=== PATIENT | male | born 1975 | race Caucasian/White ===

== ENCOUNTER 2019-10-07 10:27 | Outpatient (CLI) | payer BC, SELFPAY ==
[2019-10-11 10:18] LABS: PSA, Screening 0.4 ng/mL (0.0-2.5)
== END 2019-10-07 10:47 ==
PROVIDERS: PCP Internal Medicine; Visit Provider Naturopath
DX: R35.0 Frequency of micturition (principal); Z12.5 Encounter for screening for malignant neoplasm of prostate
CPT/HCPCS: 36415; 84153; 84154

== ENCOUNTER 2020-07-20 11:22 | Emergency (ER) | payer BC, SELFPAY ==
[2020-07-20 11:26] VITALS: BP 136/86; PULSE 78; RESP 14; TEMP 37.2; O2SAT 97
--- NOTE | 2020-07-20 11:38 | ED.GENADUL_ITS ---
Discharge Plan Disposition Patient Disposition: HOME Condition: Stable Discharge Details Clinical Impression: Lumbago with sciatica, right side Primary Care Provider: Reese Robert ED Provider: Sangita Gannon Home Meds and New Rx's Prescriptions: Continued methylprednisolone [Medrol (Tevin)] 4 mg tablets,dose pack See Rx Instructions PO PER PKG DIR Qty: 21 RF: 0 Discharge Instructions Instructions: Sciatica (ED), Lower Back Exercises (ED) Additional Instructions: You should hear from radiology regarding MRI within the next week. Follow up with primary care provider in 3-5 days. Return to ED sooner if any worsening or concerns. Increase oral fluids. Please take Tylenol or Ibuprofen with food every 4-6 hours as needed for pain and swelling. Continue with physical th erapy. Return for any loss of bowel or bladder control, numbness or tingling in your groin area or inability to walk. Referrals: Reese Robert [Primary Care Provider] - Discharge Data Discharge Date/Time-TO BE ENTERED AT DEPARTURE: 07/20/20 13:25 Medical Decision Making 1144: Spoke with home service technician Ralph who reports that they would be able to get him in as an outpatient MRI later this week if they get the orders sent today. At this time capability to get MRI today is not available. At this time I feel that that is appropriate there is no emergent need for an MRI today. Patient has no loss of bowel or bladder control no saddle anesthesia or any emergent symptoms to indicate need for MRI today. I will discuss this with the patient. X-ray of the L-spine ordered and urinalysis. EXAM: XR LUMBAR SPINE COMPLETE CLINICAL HISTORY: Lumbar tenderness with Right side sciatica. TECHNIQUE: 2D digital imaging was performed. COMPARISON: No exams were available for comparison FINDINGS: BONES: No fracture or destructive lesion. Vertebral bodies are unremarkable. No facet hypertrophy identified. DISKS: Intervertebral disc spaces are maintained. ALIGNMENT: Lumbar spinal alignment is within normal limits. SOFT TISSUE: Normal. IMPRESSION: Unremarkable radiographs of the lumbar spine. Discussed lumbar x-rays with patient, verbalized understanding. Discussed strict return instructions. This text was generated using [employer] system, please disregard any oddities of phrase or misspellings. HPI General Mode of arrival: ambulatory . Date/Time Provider Initiated Documentation: 07/20/20 11:23 . Limitations to Documentation: no limitations . Information obtained by: patient . HPI Narrative: 24-year-old male presents to the ER with chief complaint of right calf numbness. He was seen at [facility] yesterday with lower back pain with radiation into his right hip and extremity, he states that he is in physical therapy and has been taking methylprednisolone which has helped his pain. He states that yesterday began with numbness to his right calf down into his right foot. He has an outpatient MRI ordered for a thoracic and lumbar spine without contrast and he was hoping that he could get that done today. He denies any loss of bowel or bladder control, no saddle anesthesia no urinary hesitancy or constipation. Related Data Home Medications Medication Instructions Recorded Confirmed methylprednisolone 4 mg tablets in See Rx Instructions PO PER PKG DIR 07/19/20 07/20/20 a dose pack #21 dose pk Previous Rx's Medication Instructions Recorded methylprednisolone 4 mg tablets in See Rx Instructions PO PER PKG DIR 07/19/20 a dose pack #21 dose pk Allergies Allergy/AdvReac Type Severity Reaction Status Date / Time No Known Allergies Allergy Unverified 07/20/20 17:17 General Stated Complaint: Nk/Back Pain JUDY: 3 Review of Systems Narrative: Constitutional: Negative for weight loss, alert and oriented, well groomed, normal body habitus, appears comfortable. HEENT: Denies trauma, headaches, blurry vision, nasal discharge, sore throat, trouble swallowing. Chest: Denies chest pain, palpitations, irregular rhythm, hypertension. Respiratory: Denies Shortness of breath, cough, hemoptysis. GI: Denies abdominal pain, nausea, vomiting, diarrhea, constipation. : Denies dysuria, hematuria, flank pain, rectal bleeding. Neuro: Denies dizziness, blurry vision, weakness, syncope, headache or facial numbness. Hematologic: Denies easy bruising, intolerance to heat or cold, hair loss. [facility] Social History Smoking/Tobacco Use Status: Never Smoking risk assessment performed?: Yes Alcohol Intake: never Drug use: Never Do you feel safe at home: Yes Do you feel safe in your relationship?: Yes Exam Narrative Exam Narrative: Constitutional: Alert and oriented x3. Appears stated age. Normal body habitus. Head: Normocephalic, no trauma. Eyes: Pupils PERRLA, Red reflex noted, EOM's intact. Eyelids symmetrical without lesions, discharge, or swelling. ENT: Bilateral TM's WNL, External ear normal to inspection, no mastoid TTP, swelling, or erythema, Nasal turbinates WNL, no nasal discharge. Normal dentition, Posterior pharynx WNL, no exudate. Chest: RRR, Normal S1, S2, distal pulses intact. Resp: Lungs clear to auscultation bilaterally, no wheezes, rales, or rhonchi. Musculoskeletal: Normal gait, 5/5 strength to all four extremities. Skin: No suspicious rashes or lesions. Capillary refill less than 2 sec. Neurologic: Cranial nerves II-XII intact. Alert and oriented x 3. DTR's intact. Hematologic/Lymphatic: No ecchymosis, no lymphadenopathy. Course Vital Signs Vital signs: Vital Signs Temperature 37.2 C 07/20/20 11:26 Pulse 78 07/20/20 11:26 Respiratory Rate 14 07/20/20 11:26 Blood Pressure 136/86 07/20/20 11:26 Pulse Oximetry 97 07/20/20 11:26 Temperature 37.2 C 07/20/20 11:26 Temperature Source Skin 07/20/20 11:26 Pulse 78 07/20/20 11:26 Respiratory Rate 14 07/20/20 11:26 Blood Pressure 136/86 07/20/20 11:26 Blood Pressure Position Sitting 07/20/20 11:26 Pulse Oximetry 97 07/20/20 11:26 Oxygen Delivery Method Room Air 07/20/20 11:26 Oxygen Flow Rate 0 07/20/20 11:26 Pain Level 5 07/20/20 11:26
[2020-07-20 12:18] LABS: Bilirubin Negative (Negative); Blood Negative (Negative); Clarity Clear (Clear); Glucose Negative (Negative); Ketones Trace mg/dL (Negative); Leukocyte Esterase Negative (Negative); Nitrite Negative (Negative); Specific Gravity >= 1.030 (1.005-1.025); Urobilinogen 0.2 EU/dL (Up TO 0.2)
[2020-07-20 12:26] LABS: Bacteria Negative HPF (Negative); C & S Indicated? No; Casts Negative LPF (Negative); Crystals Negative HPF (Negative); Epithelial Cells Rare HPF (Negative); Mucus Heavy (Negative); RBC Negative HPF (0-2); WBC 0-2 HPF (0-5)
--- NOTE | 2020-07-20 12:26 | DI.RAD_ITS ---
EXAM: XR LUMBAR SPINE COMPLETE CLINICAL HISTORY: Lumbar tenderness with Right side sciatica. TECHNIQUE: 2D digital imaging was performed. COMPARISON: No exams were available for comparison FINDINGS: BONES: No fracture or destructive lesion. Vertebral bodies are unremarkable. No facet hypertrophy desiree ntified. DISKS: Intervertebral disc spaces are maintained. ALIGNMENT: Lumbar spinal alignment is within normal limits. SOFT TISSUE: Normal. IMPRESSION: Unremarkable radiographs of the lumbar spine. DATA REPOSITORY: RADIATION DOSE DELIVERED:
== END 2020-07-20 13:25 | disposition home or self-care (01) ==
PROVIDERS: Emergency Provider Registered Nurse Emergency; PCP Naturopath
DX: M54.41 Lumbago with sciatica, right side (principal); R20.0 Anesthesia of skin
CPT/HCPCS: 99283; 72110; 81003; 81015

== ENCOUNTER 2020-08-01 00:22 | Outpatient (CLI) | payer BC, SELFPAY ==
--- NOTE | 2020-08-01 | DI.MRI_ITS ---
EXAM: MR LUMBAR SPINE WO CLINICAL HISTORY: LUMBAGO,M54.5,PARESTHESIA,R20.2,SCIATICA,M54.30. TECHNIQUE: Multiplanar multisequence MRI was performed. COMPARISON: No exams were available for comparison FINDINGS: MR examination of the lumbosacral spine was performed according to the usual protocol. No significan t bony signal abnormality seen. Incidental note is made of apparent large bilateral renal cysts. Th beatrice are incompletely visualized. There is a large central and right-sided disc herniation at L4-5 with possible extruded disc fragment projecting below the disc level in the spinal canal on the right. There is deformity of adjacent ne rve roots. No other disc herniation identified in lumbar region. No evidence of a bony central canal spinal emily nosis or neural foraminal stenosis. IMPRESSION: Large right central/paracentral disc herniation at L4-5 with displacement of multiple right-sided ne rve roots at this level. No other significant findings. DATA REPOSITORY:
== END 2020-08-01 00:42 ==
PROVIDERS: PCP Naturopath; Visit Provider Naturopath
DX: M51.16 Intervertebral disc disorders with radiculopathy, lumbar region (principal); R20.2 Paresthesia of skin
CPT/HCPCS: 72148

== ENCOUNTER 2021-02-20 03:05 | Outpatient (CLI) | payer BC, SELFPAY ==
[2021-02-20 12:49] LABS: HCT 44.4 % (40.0-50.0); HGB 15.6 g/dL (13.5-17.5); MCH 30.5 pg (27.0-33.0); MCHC 35.1 % (32.0-36.0); MCV 86.7 fL (80-95); Platelet Count 220 10^3/uL (130-400); RBC 5.12 10^6/uL (4.36-5.78); RDW-SD 37.7 fL; WBC 5.45 10^3/uL (4.4-10.8)
[2021-02-20 13:01] LABS: Hemoglobin A1C 5.3 % (<5.7)
[2021-02-20 13:16] LABS: ALT 44 U/L (16-63); AST 22 U/L (15-37); Albumin 4.3 g/dL (3.4-5.0); Alkaline Phosphatase 86 U/L (46-116); Anion Gap 6.7 mmol/L (3-11); BUN 19 mg/dL (7-18); CO2 32.3 mmol/L (21.0-32.0); CREATININE 1.3 mg/dL (0.70-1.30); Calcium 9.5 mg/dL (8.5-10.1); Calculated LDL 110 mg/dL (<100); Chloride 103 mmol/L (98-107); Cholesterol 187 mg/dL (<200); Glucose 100 mg/dL (74-106); HDL Cholesterol 60 mg/dL (40-60); Potassium 4.3 mmol/L (3.5-5.1); Sodium 142 mmol/L (136-145); TSH (W/Ref FT4) 2.27 uIU/mL (0.36-3.74); Total Protein 7.3 g/dL (6.4-8.2); Triglyceride 89 mg/dL (<150)
== END 2021-02-20 03:06 | disposition home or self-care (01) ==
LOC: LOS 03:05
PROVIDERS: PCP Nurse Practitioner Family; Visit Provider Nurse Practitioner Family
DX: I10 Essential (primary) hypertension (principal); Z13.1 Encounter for screening for diabetes mellitus; Z13.220 Encounter for screening for lipoid disorders; Z13.29 Encounter for screening for other suspected endocrine disorder
CPT/HCPCS: 36415; 80053; 80061; 85027; 83036; 84443

== ENCOUNTER 2021-08-06 20:42 | Outpatient (REF) | payer BC, SELFPAY ==
[2021-08-08 15:09] LABS: COVID-19 RT-PCR UVMMC Result Negative (Negative)
== END 2021-08-06 20:43 | disposition home or self-care (01) ==
LOC: LBN 20:42
PROVIDERS: PCP Nurse Practitioner Family; Visit Provider Family Medicine
DX: Z20.822 Contact with and (suspected) exposure to COVID-19 (principal); R05.8 Other specified cough
CPT/HCPCS: U0003

== ENCOUNTER 2024-02-25 00:52 | Outpatient (CLI) | payer OTHER, SELFPAY ==
[2024-02-25 12:21] LABS: HCT 43.1 % (40.0-50.0); HGB 15.3 g/dL (13.5-17.5); MCH 30.7 pg (27.0-33.0); MCHC 35.5 % (32.0-36.0); MCV 86 fL (80-95); MPV 10.8 fL (8.0-11.0); Platelet Count 222 10^3/uL (130-400); RBC 4.99 10^6/uL (4.36-5.78); WBC 4.76 10^3/uL (4.4-10.8)
[2024-02-25 12:44] LABS: Anion Gap 6.3 mmol/L (3-11); BUN 20 mg/dL (7-18); CO2 29.7 mmol/L (21.0-32.0); CREATININE 1.3 mg/dL (0.70-1.30); Calcium 9.4 mg/dL (8.5-10.1); Calculated LDL 112 mg/dL (<100); Chloride 102 mmol/L (98-107); Cholesterol 187 mg/dL (<200); Estimated GFR 67.76 (mL/min/1.73m2); Glucose 89 mg/dL (74-106); HDL Cholesterol 59 mg/dL (40-60); Potassium 3.7 mmol/L (3.5-5.1); Sodium 138 mmol/L (136-145); Triglyceride 83 mg/dL (<150)
== END 2024-02-25 00:53 | disposition home or self-care (01) ==
LOC: LOS 00:52
PROVIDERS: Visit Provider Student in an Organized Health Care Education/Training Program
DX: I10 Essential (primary) hypertension (principal); Z13.220 Encounter for screening for lipoid disorders; Z13.228 Encounter for screening for other metabolic disorders
CPT/HCPCS: 36415; 80048; 80061; 85027

== ENCOUNTER 2024-07-14 15:16 | Outpatient (CLI) | payer OTHER, SELFPAY ==
--- NOTE | 2024-07-14 11:00 | DI.RAD_ITS ---
Exam(s) XR HIP RT COMPLETE AP PELVIS EXAM: XR HIP RT COMPLETE AP PELVIS CLINICAL HISTORY: RIGHT HIP PAIN. TECHNIQUE: 2D digital imaging was performed of the right hip. Images were obtained. AP pelvis and lateral right hip views were obtained. COMPARISON: No exams were available for comparison FINDINGS: BONES: No acute fracture is present. No bony destructive lesion is seen. JOINTS: No dislocation present. There is mild prominence of the acetabular roof suggesting femoral ac etabular impingement. The left hip appears well maintained. SOFT TISSUE: Surgical clips are seen inferior to the pelvis suggesting prior vasectomy. IMPRESSION: Prominence of the right acetabular roof suggesting femoral acetabular impingement. Unremarkable radi ographs of the pelvis. DATA REPOSITORY: RADIATION DOSE DELIVERED:
== END 2024-07-14 15:17 | disposition home or self-care (01) ==
LOC: DIORS 15:17
PROVIDERS: PCP Student in an Organized Health Care Education/Training Program; Visit Provider Student in an Organized Health Care Education/Training Program
DX: M25.551 Pain in right hip (principal)
CPT/HCPCS: 73502

== ENCOUNTER 2024-08-24 02:55 | Outpatient (CLI) | payer OTHER, SELFPAY ==
--- NOTE | 2024-08-24 09:15 | DI.MRI_ITS ---
Exam(s) MR LOWER JOINT RT WO EXAM: MR LOWER JOINT RT WO CLINICAL HISTORY: Right hip pain,femoroacetabular impingement rt hip, m25.851 TECHNIQUE: Multiplanar multisequence MRI of right hip was performed COMPARISON: CR XR HIP RT COMPLETE AP PELVIS from 07/14/2024 FINDINGS: Bones: There is no evidence of a fracture or avascular necrosis. No bone marrow edema is seen. The SI joints and symphysis pubis are well maintained. Joint: There is no evidence of a paralabral cyst. No joint effusion is present. The right labrum ap pears mildly thickened compared to the left. This may be degenerative or reflect a tear. There is p rominence of the right acetabular roof suggestive of femoral acetabular impingement. Musculotendinous structures: The right Musculotendinous structures demonstrate no abnormality. Intra pelvic structures demonstrate no significant abnormality. Note is made of hyperintense signal adjacen t to the left greater trochanter on the T2 weighted images. The left gluteal tendons at the insertio n site onto the greater trochanter are intact. IMPRESSION: 1. Prominence of the right acetabular roof suggestive of femoral acetabular impingement. 2. Thickened right labrum compared to the left. This may represent degeneration or tear. 3. Hyperintense signal adjacent to the left greater trochanter. This may represent mild inflammation . The gluteus medius tendon is intact. DATA REPOSITORY:
== END 2024-08-24 03:15 ==
LOC: DI 02:55
PROVIDERS: PCP Student in an Organized Health Care Education/Training Program; Visit Provider Student in an Organized Health Care Education/Training Program
DX: M25.851 Other specified joint disorders, right hip (principal)
CPT/HCPCS: 73721

== ENCOUNTER 2025-07-06 13:09 | Outpatient (REF) | payer OTHER, SELFPAY ==
[2025-07-06 15:23] LABS: Abs Immature Grans 0.01 10^3/uL (0.0-0.06); HCT 45.8 % (40.0-50.0); HGB 15.8 g/dL (13.5-17.5); Immature Grans % 0.2 %; MCH 29.8 pg (27.0-33.0); MCHC 34.5 % (32.0-36.0); MCV 86 fL (80-95); MPV 11.1 fL (8.0-11.0); Platelet Count 216 10^3/uL (130-400); RBC 5.30 10^6/uL (4.36-5.78); RDW 12.2 % (11.8-14.1); RDW-SD 38.5 fL; WBC 5.55 10^3/uL (4.4-10.8)
[2025-07-06 16:05] LABS: ALT 50 U/L (16-63); AST 21 U/L (15-37); Albumin 4.1 g/dL (3.4-5.0); Alkaline Phosphatase 125 U/L (46-116); Anion Gap 7.4 mmol/L (3-11); BUN 16 mg/dL (7-18); Bilirubin, Total 1.6 mg/dL (0.2-1.0); CO2 31.6 mmol/L (21.0-32.0); Calcium 9.9 mg/dL (8.5-10.1); Chloride 101 mmol/L (98-107); Glucose 128 mg/dL (74-106); Potassium 4.6 mmol/L (3.5-5.1); Sodium 140 mmol/L (136-145); Total Protein 7.7 g/dL (6.4-8.2)
[2025-07-08 10:33] LABS: Varicella Zoster DNA Result Negative (Negative)
[2025-07-10 10:13] LABS: Lyme Ab w Rflx to Lyme Confirm Negative (Negative)
== END 2025-07-06 13:10 | disposition home or self-care (01) ==
LOC: LBN 13:09
PROVIDERS: PCP Student in an Organized Health Care Education/Training Program; Visit Provider Physician Assistant Medical
DX: R21 Rash and other nonspecific skin eruption (principal); L98.9 Disorder of the skin and subcutaneous tissue, unspecified
CPT/HCPCS: 80053; 87798; 85025; 86618

== ENCOUNTER 2025-07-26 15:07 | Outpatient (REF) | payer OTHER, SELFPAY ==
[2025-07-26 15:50] LABS: Hemoglobin A1C 5.4 % (<5.7)
[2025-07-26 15:56] LABS: ALT 64 U/L (10-49); AST 37 U/L (<34); Albumin 4.6 g/dL (3.4-5.0); Alkaline Phosphatase 116 U/L (46-116); Anion Gap 9.4 mmol/L (3-11); BUN 21 mg/dL (9-23); Bilirubin, Total 2.10 mg/dL (0.2-1.2); CO2 29.6 mmol/L (20.0-31.0); Calcium 10.2 mg/dL (8.3-10.6); Chloride 101 mmol/L (98-107); Glucose 96 mg/dL (74-106); Potassium 3.6 mmol/L (3.5-5.1); Sodium 140 mmol/L (136-145); Total Protein 7.5 g/dL (5.7-8.2)
[2025-08-01 10:30] LABS: Hepatitis A Antibody IgM Negative (Negative); Hepatitis C Ab w Rflx HCV PCR Negative (Negative)
== END 2025-07-26 15:08 | disposition home or self-care (01) ==
LOC: NCHCN 15:07
PROVIDERS: PCP Student in an Organized Health Care Education/Training Program; Visit Provider Student in an Organized Health Care Education/Training Program
DX: Z13.1 Encounter for screening for diabetes mellitus (principal); I10 Essential (primary) hypertension; R17 Unspecified jaundice
CPT/HCPCS: 80053; 86704; 86709; 86803; 87340; 82043; 82247; 82248; 82570; 83036